=== PATIENT | male | born 1970 | race Hispanic/Latino ===

== ENCOUNTER 2019-12-29 11:53 | Inpatient (IN) | payer OTHER, SELFPAY ==
[2019-12-29 12:25] LABS: #Basophils 0.1 thou/uL (0.0-0.2); #Eosinphils 0.1 thou/uL (0.0-0.7); #Lymphocytes 2.3 thou/uL (1.20-3.40); #Monocytes 0.4 thou/uL (0.11-0.59); #Neutrophils 6.4 thou/uL (1.40-6.50); %Basophils 0.9 % (0.0-1.0); %Eosinophils 1.3 % (0.0-10.0); %Lymphocytes 24.8 % (21.0-51.0); %Monocytes 4.1 % (0.0-10.0); %Neutrophils 68.9 % (42.0-75.0); Hemoglobin 15.8 g/dL (14.0-18.0); Mean Corpuscular HGB CONC 32.6 g/dL (32.0-36.0); Mean Corpuscular Hemoglobin 28.6 pg (27.0-31.0); Mean Platelet Volume 7.6 fL (7.4-10.4); Platelet Count 305 thou/uL (130-400); RBC Distribution Width 12.5 % (11.5-14.5); Red Blood Cell (RBC) Count 5.51 mill/uL (4.70-6.10); White Blood Cell (WBC) Count 9.3 thou/uL (4.8-10.8)
[2019-12-29 12:32] LABS: PTT 24.2 SEC (22.9-36.1); Prothrombin Time 12.7 SEC (12.0-14.7)
[2019-12-29 12:45] LABS: ALT (SGPT) 34 U/L (8-55); AST (SGOT) 20 U/L (5-34); Albumin 4.1 g/dL (3.5-5.0); Alkaline Phosphatase 65 U/L (40-110); Anion Gap 10 mmol/L (10-20); BUN (Urea Nitrogen) 12 mg/dL (8.9-20.6); Bilirubin, Total 0.3 mg/dL (0.2-1.2); Calc. Creatinine Clearance 0 mL/min (70-130); Carbon Dioxide 27 mmol/L (22-29); Chloride 104 mmol/L (98-107); Estimated GFR-MDRD 51; Globulin 2.6 g/dL (2.4-3.5); Glucose 139 mg/dL (70-105); Potassium 4.3 mmol/L (3.5-5.1); Protein, Total 6.7 g/dL (6.0-8.3); Sodium 137 mmol/L (136-145)
--- NOTE | 2019-12-29 12:46 | RAD ---
CHEST ONE VIEW: HISTORY: Chest pain. COMPARISON: 02/19/2016 FINDINGS: Heart size is normal. Lungs are clear. IMPRESSION: No significant acute intrathoracic disease. Stable from prior study. POS: [facility]
[2019-12-29 12:51] LABS: Cardiac Risk 9.3 (Less than 4.5)
[2019-12-29] MEDS ORDERED: Iopamidol 370 76% 100 ML VIAL ONE (13:35)
[2019-12-29] MEDS ORDERED: Iopamidol 370 76% 50 ML VIAL FS ONE (13:35)
[2019-12-29] MEDS ORDERED: Morphine 4 MG/ML VIAL SLOW IVP PRN (13:49)
[2019-12-29] MEDS ORDERED: Morphine 2 MG/ML SYRINGE SLOW IVP PRN (13:49)
[2019-12-29] MEDS ORDERED: Nitroglycerin 0.4 MG TAB (25 Tab Bottle) SL PRN (13:49)
[2019-12-29] MEDS ORDERED: Sodium Chloride 0.9% 1,000 ML IV SCH (14:00)
[2019-12-29 14:34] VITALS: BMI 38.7
--- NOTE | 2019-12-29 14:43 | RAD ---
EXAM: Chest one view: HISTORY: Post interventional cardiology evaluation follow-up chest pain COMPARISON: 12/29/2019 FINDINGS: Heart size: Within normal limits. Lungs: Clear of acute process. No evidence for confluent pneumonia, pleural effusion, acute edema, or pneumothorax, or other signifi cant acute process. IMPRESSION: No significant acute intrathoracic disease. Stable chest.
--- NOTE | 2019-12-29 16:02 | HP ---
HISTORY OF PRESENT ILLNESS: Haresh Arnold is a 49-year-old male with no previous cardiac history or symptoms. Today at approximately 10:30 a.m., he had onset of substernal chest pressure and burning associated with shortness of breath and diaphoresis. He did not have any nausea or vomiting. He came to the emergency room, was found to have changes consistent with posterior lateral wall STEMI. He has been given sublingual nitroglycerin, intravenous heparin. I also gave an order to start IV nitroglycerin with a blood pressure of 180/120 and to give metoprolol 5 mg IV. PAST MEDICAL HISTORY: He was on cholesterol medicines in the past, but he was told his cholesterol was normal and so he could stop taking the medications (Of note , in December 2015, his cholesterol was 327, triglycerides 189, HDL 29, and LDL 260) . He denies any history of hypertension or diabetes. MEDICATIONS: None. ALLERGIES: NONE. PAST SURGICAL HISTORY: Operations, herniorrhaphy and some mouth surgeries. SOCIAL HISTORY: Smokes 3/4 pack per day. He does not drink. FAMILY HISTORY: Negative for coronary artery disease. REVIEW OF SYSTEMS: A 10-point review of systems unremarkable. PHYSICAL EXAMINATION: VITAL SIGNS: Blood pressure 180/120 and pulse of 89. HEENT: PERRL. NECK: Supple. CHEST: Clear. CARDIAC: S1 and S2 normal without any S3, S4, or murmurs. ABDOMEN: Normal bowel sounds without tenderness or organomegaly. ABDOMEN: Obese. EXTREMITIES: Revealed no clubbing, cyanosis, or edema. NEUROLOGIC: Grossly intact. SKIN: Warm and dry. LABORATORY DATA: EKG reveals a [address]-elevation in I and aVL. There is downsloping ST segments in [address]-segment depression in V2, leads II, III, and aVF. CBC is unremarkable other blood tests were pending IMPRESSION: 1. Lateral and probable posterior ST segment elevation myocardial infarction. 2. Hypercholesterolemia, untreated. 3. Smoker. RECOMMENDATIONS: The situation was discussed with the patient and his family. It is recommended that he undergo emergent cardiac catheterization. Risks were discussed including , myocardial infarction, dye reaction, vascular injury, CVA, transfusion, limb loss, renal loss, etc. Also risk of intervention with PTCA and stent placement were discussed including , myocardial infarction, emergent CABG, restenosis, stent thrombosis, vessel perforation, etc. He has no history of gastrointestinal bleeding or stroke. He has no upcoming surgical procedures and overall, it is recommended that a drug-eluting stent be placed if required. He understands and is agreeable to proceed. Job ID: [id number] [email or web address]
[2019-12-29 19:14] LABS: Troponin I 59.184 ng/mL (< 0.028)
[2019-12-29] MEDS: Atorvastatin Calcium 40 MG TAB PO SCH (20:39)
[2019-12-29] MEDS: Metoprolol Tartrate 25 MG TAB PO SCH (20:39)
[2019-12-30 01:03] LABS: Troponin I 80.387 ng/mL (< 0.028)
[2019-12-30 04:12] LABS: #Basophils 0.1 thou/uL (0.0-0.2); #Eosinphils 0.1 thou/uL (0.0-0.7); #Lymphocytes 2.6 thou/uL (1.20-3.40); #Monocytes 0.9 thou/uL (0.11-0.59); #Neutrophils 9.2 thou/uL (1.40-6.50); %Basophils 0.5 % (0.0-1.0); %Eosinophils 0.8 % (0.0-10.0); %Lymphocytes 19.9 % (21.0-51.0); %Monocytes 7.1 % (0.0-10.0); %Neutrophils 71.7 % (42.0-75.0); Hemoglobin 14.8 g/dL (14.0-18.0); Mean Corpuscular HGB CONC 32.7 g/dL (32.0-36.0); Mean Corpuscular Hemoglobin 28.6 pg (27.0-31.0); Mean Corpuscular Volume 87.3 fL (78.0-98.0); Mean Platelet Volume 7.9 fL (7.4-10.4); Platelet Count 287 thou/uL (130-400); RBC Distribution Width 12.5 % (11.5-14.5); Red Blood Cell (RBC) Count 5.18 mill/uL (4.70-6.10); White Blood Cell (WBC) Count 12.8 thou/uL (4.8-10.8)
[2019-12-30 04:48] LABS: ALT (SGPT) 47 U/L (8-55); AST (SGOT) 138 U/L (5-34); Albumin 3.8 g/dL (3.5-5.0); Alkaline Phosphatase 58 U/L (40-110); Anion Gap 13 mmol/L (10-20); BUN (Urea Nitrogen) 10 mg/dL (8.9-20.6); Bilirubin, Total 0.7 mg/dL (0.2-1.2); Calc. Creatinine Clearance 159 mL/min (70-130); Calcium 8.9 mg/dL (7.8-10.44); Carbon Dioxide 21 mmol/L (22-29); Chloride 108 mmol/L (98-107); Estimated GFR-MDRD Greater than 90; Globulin 2.8 g/dL (2.4-3.5); Glucose 92 mg/dL (70-105); Potassium 4.1 mmol/L (3.5-5.1); Protein, Total 6.6 g/dL (6.0-8.3); Sodium 138 mmol/L (136-145)
[2019-12-30 07:00] LABS: Critical Call Chem Troponin I RESULT DECREASING; Troponin I 61.935 ng/mL (< 0.028)
[2019-12-30] MEDS: Clopidogrel Bisulfate 75 MG TAB PO SCH (09:06)
[2019-12-30] MEDS: Metoprolol Tartrate 25 MG TAB PO SCH ×2 (09:06→20:05)
[2019-12-30] MEDS: Aspirin Chewable 81 MG TAB PO SCH (09:06)
--- NOTE | 2019-12-30 09:44 | CON ---
DATE OF CONSULTATION: HISTORY OF PRESENT ILLNESS: This is a 49-year-old gentleman, who underwent stenting x2 of his right coronary artery yesterday for an acute right coronary artery occlusion. At the conclusion of the procedure, he had additional 90% stenosis in a small distal circumflex vessel, 90% stenosis in a small first obtuse marginal, relatively normal larger second obtuse marginal, relatively normal LAD, hazy probably 70% stenosis in a first diagonal. He also had stenosis at the origin of his PDA and posterolateral with posterolateral being very small vessels distally that could not be addressed. His ejection fraction was estimated by Dr. Yu to be 65%, and his troponins peaked at about 70. Cardiovascular risk factors include untreated cholesterol elevation as well as a smoking history and obesity. He denies any family history. 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 PAST SURGICAL HISTORY: Includes inguinal hernia repair. Recently, had some carious teeth removed. PHYSICAL EXAMINATION: GENERAL: He is alert, cooperative gentleman, overweight at about 250 pounds, primarily central obesity. NECK: No carotid bruits. LUNGS: Clear to auscultation. CARDIAC: Regular rate and rhythm. No murmurs. EXTREMITIES: No peripheral edema. ABDOMEN: Quite obese, and as such, could not palpate organomegaly. PLAN: At this time, I think medical management would be preferable to surgical intervention, given the normal LAD and obtuse marginal. The distal circ is not bypassable due to small size. The first OM is possibly bypassable, but quite small, and the PDA could be bypassed. The patient states that he is not interested in surgery at any cost at this time and would prefer medical management. Job ID: [id number]
--- NOTE | 2019-12-30 14:57 | CON ---
DATE OF CONSULTATION: 12/30/2019 SERVICE: Pulmonary Medicine. REASON FOR CONSULTATION: ICU patient. HISTORY OF PRESENT ILLNESS: The patient is a 49-year-old male with past medical history significant for dyslipidemia. He was in his usual state of health when he had onset of substernal chest discomfort that lasted for about 2 hours before it grew in intensity to the point, where he wanted to present to the Emergency Department. At that location, he was identified as having an ST-elevation myocardial infarction. 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 The culprit lesion was identified in the RCA. It was ballooned and I believe a thrombectomy was performed, but it is not. A stent x2 was placed. He also had significant three-vessel disease. Overnight, he had a little bit of residual chest discomfort that has gone away by this morning. I find him awake and alert. He is cooperative and denies any shortness of breath. Overnight, he had witnessed episodic desaturations, characteristic of obstructive sleep apnea. This was quite pronounced. The family says he always sleeps like this, but they did not realize that he was having desaturation events. PAST MEDICAL HISTORY: 1. Dyslipidemia. 2. Tobacco abuse. 3. Coronary artery disease, new diagnosis with history of PA. PAST SURGICAL HISTORY: 1. Inguinal hernia repair. 2. Dental extractions. SOCIAL HISTORY: Significant alcohol or illicit drug use. He smokes about half to a pack on a daily basis and has greater than a 30 pack-year history of smoking. He has no exposure to chemicals, dust, asbestos, or tuberculosis otherwise. FAMILY HISTORY: Noncontributory. ALLERGIES: NO KNOWN DRUG ALLERGIES. MEDICATIONS: List of his inpatient medications was reviewed. No specific updates were made at this time. REVIEW OF SYSTEMS: General, head, ears, eyes, nose, throat, cardiovascular, respiratory, GI, , musculoskeletal, neurologic, and skin are negative except as mentioned is the HPI. PHYSICAL EXAMINATION: VITAL SIGNS: Afebrile, pulse 84, blood pressure 110/51, respirations 23, and saturation 98% on room air. GENERAL: The patient is awake and alert, in no apparent distress. LUNGS: Wonderful air entry with no prolonged expiratory phase or wheezing present. HEART: Normal rate. Regular. ABDOMEN: Soft, nontender, and nondistended. Bowel sounds are positive. MUSCULOSKELETAL: No cyanosis or clubbing. There is trace pitting in the bilateral lower extremities. NEUROLOGIC: Grossly nonfocal. LABORATORY DATA: WBC 12.8, hemoglobin 14.8, and platelets 287,000. INR 1.0. Basic metabolic profile and liver function studies are otherwise unremarkable. Troponin peaked at 80 and is now downtrending. Triglycerides are elevated. IMAGING: Chest x-ray demonstrates no acute cardiopulmonary abnormality. ASSESSMENT: 1. Acute myocardial infarction, status post percutaneous coronary intervention with stent placement in the right coronary artery. 2. Morbid obesity. 3. Obstructive sleep apnea, significant and witnessed during this hospital stay by healthcare providers. DISCUSSION AND PLAN: I have encouraged the patient to establish care with a primary care physician, and discuss moving forward with a sleep study. Whether it is an in-lab or home sleep study, it will be determined by his ejection fraction. He understands that severe untreated sleep apnea can result in the heart disease, brain disease including stroke and dementia, sudden cardiac , and kidney problems through time. He also appreciates that this is not an absolute emergency to get addressed, but that it should be done in a systematic, but not in an expeditious fashion. At this point, he has no further requirements for inpatient Pulmonary or Critical Care opinion, and I will sign off. Please call with additional questions or concerns through time. Job ID: [id number]
[2019-12-30] MEDS: Atorvastatin Calcium 40 MG TAB PO SCH (20:05)
[2019-12-31 04:36] LABS: Anion Gap 11 mmol/L (10-20); BUN (Urea Nitrogen) 14 mg/dL (8.9-20.6); Calc. Creatinine Clearance 134 mL/min (70-130); Calcium 8.9 mg/dL (7.8-10.44); Carbon Dioxide 24 mmol/L (22-29); Chloride 105 mmol/L (98-107); Estimated GFR-MDRD 74; Glucose 79 mg/dL (70-105); Potassium 4.1 mmol/L (3.5-5.1); Sodium 136 mmol/L (136-145)
[2019-12-31] MEDS: Clopidogrel Bisulfate 75 MG TAB PO SCH (08:29)
[2019-12-31] MEDS: Metoprolol Tartrate 25 MG TAB PO SCH (08:29)
[2019-12-31] MEDS: Aspirin Chewable 81 MG TAB PO SCH (08:30)
[2019-12-31] MEDS ORDERED: Ezetimibe 10 MG TAB PO SCH (09:00)
[2019-12-31 11:41] VITALS: BP 138/74
[2019-12-31 12:17] VITALS: TEMP 98.7
--- NOTE | 2019-12-31 12:46 | PRG ---
DATE OF SERVICE: 12/31/2019 SERVICE: Pulmonary Medicine. INTERVAL HISTORY: The patient is doing really well from respiratory standpoint. He is on room air. No complaints overnight. He has no chest heaviness that brought him in, though he has a sharp discomfort over on the right side that is completely different than what brought him into the hospital. Otherwise, he has returned to his usual state of health, he has no specific complaints. He has been able to walk around the hallways without difficulty and breathing. PHYSICAL EXAMINATION: VITAL SIGNS: Afebrile, pulse 66, blood pressure 138/74, respirations 14, and saturation 99% on room air. GENERAL: The patient is awake and alert, in no apparent distress. LUNGS: Wonderful air entry. There are minimal dependent crackles present. No rhonchi or wheezing appreciated. HEART: Normal rate and regular. ABDOMEN: Soft, nontender, and nondistended. Bowel sounds are positive. MUSCULOSKELETAL: No cyanosis or clubbing. Trace pitting is present in bilateral lower extremities. NEUROLOGIC: Grossly nonfocal. LABORATORY DATA: Basic metabolic profile is completely unremarkable. Creatinine is gently up trending to 1.06. ASSESSMENT: 1. ST-elevation myocardial infarction, status post PCI with stent placement to the RCA. 2. Morbid obesity. 3. Obstructive sleep apnea, significant and witnessed during this hospital stay at bedside by healthcare providers. DISCUSSION AND PLAN: The patient should establish care with a primary care physician on discharge from the hospital. I have encouraged him to talk to them about sleep related issues. He understands the risks of having severe sleep apnea that is untreated. At this point, he has no further requirements for inpatient Pulmonary or Critical Care opinion, and I will sign off. Please call with additional questions or concerns through time. Job ID: [id number]
--- NOTE | 2020-01-01 02:36 | DIS ---
DATE OF ADMISSION: 12/29/2019 DATE OF DISCHARGE: 12/31/2019 DISCHARGE DIAGNOSES: 1. Inferolateral ST-elevation myocardial infarction. Troponin I of 80.387 with placement of bare metal stent in the mid right coronary artery and in the proximal right coronary artery. 2. Hypercholesterolemia. 3. Smoker. DISCHARGE MEDICATIONS: 1. Aspirin 81 daily. 2. Plavix 75 mg daily x1 month. 3. Atorvastatin 80 mg at bedtime. 4. Zetia 10 mg daily. 5. Metoprolol 25 mg b.i.d. 6. Nitroglycerin 0.4 mg sublingually p.r.n. DISCHARGE DISPOSITION: The patient was given a lab slip for CMP and fasting lipids. The office will call him for a followup in 1 month. However, I am not certain that he will return for followup. HOSPITAL COURSE: Mr. Arnold had an onset of substernal chest pressure and burning associated with shortness of breath and diaphoresis. He came to the emergency room and had ST-elevation in lead I and L, and depression in V2. By the time he got to the pathology laboratory aide, he also had ST-segment elevation in II, III, and F. At catheterization, he had a 20% mid LAD and 70% diagonal. There was 90% distal lesion of the circumflex and 90% lesion in the first obtuse marginal. Right coronary artery had a 70% proximal stenosis and was totally occluded in its midportion. There was faint retrograde filling from the left. After the artery was opened, there was also found to be 70% right posterior descending stenosis at the takeoff and 80% right posterior lateral at the takeoff. He underwent placement of Rebel 2.5 x 20 mm in the mid right coronary artery and Rebel 2.5 x 12 mm in the proximal right coronary artery. Results were excellent. He was seen in consultation by Dr. Edmond for the 3-vessel coronary artery disease. He feeling was that the distal circ was not bypassable and the first obtuse marginal could be bypassed, but was small. The PDA could be bypassed, but probably not posterolateral. Therefore, he will be treated medically. Mr. Arnold was told on daily basis that he needs to quit smoking. Cholesterol was 279, triglycerides 221, HDL 30, LDL 205. He is placed on atorvastatin 80 daily and Zetia 10 daily, and this will be rechecked in 1 month. Job ID: [id number]
--- NOTE | 2020-01-01 21:03 | EKG ---
Test Reason : Blood Pressure : / mmHG Vent. Rate : 061 BPM Atrial Rate : 061 BPM P-R Int : 138 ms QRS Dur : 088 ms QT Int : 412 ms P-R-T Axes : 061 -05 -04 degrees QTc Int : 414 ms Normal sinus rhythm Inferior infarct , age undetermined Abnormal ECG No previous ECGs available Confirmed by Germain LEBLANC ([id number]) on 01/01/2020 9:03:01 PM Referred By: NOLVIA Confirmed By:Germain LEBLANC
== END 2019-12-31 17:40 | disposition home or self-care (01) | DRG 249 ==
LOC: ERS 11:53 → CCU 12:47
PROVIDERS: ADMIT Internal Medicine Cardiovascular Disease; ATTEND Internal Medicine Cardiovascular Disease
PROC: 02703EZ Dilation of Coronary Artery, One Artery with Two Intraluminal Devices, Percutaneous Approach (ICD-10-PCS; principal; 2019-12-29)
PROC: 4A023N7 Measurement of Cardiac Sampling and Pressure, Left Heart, Percutaneous Approach (ICD-10-PCS; 2019-12-29)
PROC: B2111ZZ Fluoroscopy of Multiple Coronary Arteries using Low Osmolar Contrast (ICD-10-PCS; 2019-12-29)
PROC: B2151ZZ Fluoroscopy of Left Heart using Low Osmolar Contrast (ICD-10-PCS; 2019-12-29)
DX: I21.19 ST elevation (STEMI) myocardial infarction involving other coronary artery of inferior wall (principal); F17.210 Nicotine dependence, cigarettes, uncomplicated; Z98.890 Other specified postprocedural states; I25.10 Atherosclerotic heart disease of native coronary artery without angina pectoris; Z68.38 Body mass index [BMI] 38.0-38.9, adult; E78.5 Hyperlipidemia, unspecified; G47.33 Obstructive sleep apnea (adult) (pediatric); E78.00 Pure hypercholesterolemia, unspecified; E66.01 Morbid (severe) obesity due to excess calories
CPT/HCPCS: 36415; 71045; 80048; 80053; 80061; 84484; 85025; 85347; 85610; 85730; 92941; 93005; 93010; 93458; 93798; 94760; 96365; 96375; 99152; C1725; C1769; C1876; C1887; Q9967